=== PATIENT | female | born 1985 | race Caucasian/White ===

== ENCOUNTER 2023-05-02 08:47 | Outpatient (CLI) | payer OTHER, SELFPAY ==
--- OUTSIDE RECORDS SUMMARY | 2023-05-02 08:50 | XMS_ITS | Referral Summary ---
Author Name Unknown Organization [facility] Address [address] [place] [address] Care Team Providers Care Seam Press Operator Name Role Phone Elsewhere, Pcp Primary Care Provider Unavailabl e Source Comments Patient records contain information from all sites at [facility]. For routine questions regarding patient records, call [phone] during business hours, M-F 8:00 AM - 5:00 PM Central Time. Record requests for emergency care only can be directed to [phone] at any time.[facility] Allergies Active Allergy Reactions Criticality Noted Date Comments Cetirizine Hives (Reselect Reaction),Rash 10/29/2012 Hand and feet itch very bad Fexofenadine Hives (Reselect Reaction) 09/28/2011 Hands and feet swelling Medications Medication Sig Dispensed Refills Start Date End Date Status levonorgestreL (MIRENA) 20 mcg/24 hours (5 yrs) 52 mg IUD 1 each by intrauterine route once. Placed 6 weeks ago 0 Active amoxicillin (AMOXIL) 500 mg capsule Take 1 capsule (500 mg total) by mouth every 8 (eight) hours. 30 capsule 0 01/22/2022 Active methylPREDNISolone (MEDROL DOSEPAK) 4 mg tablet Follow package directions. 21 tablet 0 03/06/2022 Active diazePAM (VALIUM) 5 mg tablet Take 1 tablet (5 mg total) by mouth 3 (three) times a day as needed for muscle spasms for up to 3 days. 9 tablet 0 03/06/2022 Active Active Problems No known active problems Immunizations Name Administration Dates Next Due 4vHPV (discontinued) 03/08/2009,05/14/2008 Td (Adult), adsorbed 03/18/2008 Social History Tobacco Use Types Packs/Day Years Used Date Smoking Tobacco: Every Day Smokeless Tobacco: Never Nutrition Answer Date Recorded Nutrition: EVOO Fat Source Unknown 05/20 Nutrition: Servings of Fruits/Vegetables per Day Not on file 05/20/2020 Dental Answer Date Recorded Dental: Regular Dentist Unknown 05/21/19 21 Sex and Gender Information Value Date Recorded Sex Assigned at Not on file Gender Identity Not on file Sexual Orientation Not on file Last Filed Vital Signs Vital Sign Reading Time Taken Comments Blood Pressure 130/96 03/06/2022 7:52 PM BROKER Pulse 100 03/06/2022 7:52 PM BROKER Temperature 36.8 ??C (98.2 ??F) 03/06/2022 7:52 PM CS T Respiratory Rate 16 01/22/2022 8:25 AM BROKER Oxygen Saturation 100% 03/06/2022 7:52 PM BROKER Inhaled Oxygen Concentration - - Weight 77.2 kg (170 lb 3.1 oz) 03/06/2022 7:53 P M BROKER Height 158 cm (5' 2.21) 03/29/2016 12:53 PM BROKER Body Mass Index 30.92 03/29/2016 12:53 PM BROKER Plan of Treatment Not on file Care Teams Seam Press Operator Relationship Specialty Start Date End Date Elsewhere, Pcp PCP - General Internal Medicine 05/22/19
--- OUTSIDE RECORDS SUMMARY | 2023-05-02 08:50 | XMS_ITS | Clinical Summary ---
Author Name Unknown Organization [facility] Address [address] [place] [address] Care Team Providers Care Automobile Body Repair Chief Name Role Phone Elsewhere, Pcp Primary Care Provider Unavailabl e Source Comments Patient records contain information from all sites at [facility]. For routine questions regarding patient records, call [phone] during business hours, M-F 8:00 AM - 5:00 PM Central Time. Record requests for emergency care only can be directed to [phone] at any time.[facility] Allergies Active Allergy Reactions Criticality [...] Comments Blood Pressure 130/96 03/06/2022 7:52 PM MORTGAGE PROCESSING MANAGER Pulse 100 03/06/2022 7:52 PM MORTGAGE PROCESSING MANAGER Temperature 36.8 ??C (98.2 ??F) 03/06/2022 7:52 PM CS T Respiratory Rate 16 01/22/2022 8:25 AM MORTGAGE PROCESSING MANAGER Oxygen Saturation 100% 03/06/2022 7:52 PM MORTGAGE PROCESSING MANAGER Inhaled Oxygen Concentration - - Weight 77.2 kg (170 lb 3.1 oz) 03/06/2022 7:53 P M MORTGAGE PROCESSING MANAGER Height 158 cm (5' 2.21) 03/29/2016 12:53 PM MORTGAGE PROCESSING MANAGER Body Mass Index 30.92 03/29/2016 12:53 PM MORTGAGE PROCESSING MANAGER Plan of Treatment Health Maintenance Due Date Last Done Comments Cervical Cancer Screening 1985 HIV Screening 1985 Hepatitis B Vaccines (1 of 3 - 3-dose series) 1985 Hepatitis C Screening 1985 Lipid (Cholesterol) Screening 1985 Tobacco Cessation counseling 1985 COVID-19 Vaccine (#1) 03/27/1986 Pneumococcal vaccine (0-64 y ears) (1 of 2 - PCV) 09/25/1991 HPV Vaccines (3 - 3-dose series) 05/31/2009 03/08/20 09, 05/14/2008 Influenza Vaccine (#1) 2022 12/31/2018, 2016 Depression Screening (Annual PHQ-2) 03/19/2023 DTaP,Tdap,and Td Vaccines (3 - Td or Tdap) 12/31/2028 12/31/2018, 05/14/2017, 03/18/2008 Care Teams Automobile Body Repair Chief Relationship Specialty Start Date End Date Elsewhere, Pcp PCP - General Internal Medicine 05/22/19
--- OUTSIDE RECORDS SUMMARY | 2023-05-02 08:50 | XMS_ITS | Clinical Summary ---
Author Name Unknown Organization [facility] Address [place], [place] [address] Care Team Providers Care Bank Vault Attendant Name Role Phone Pcp, No Primary Care Provider Unavailabl e Allergies Active Allergy Reactions Criticality Noted Date Comments Fexofenadine Hives 06/05/2013 Hands and feet swelling Cetirizine Rash 06/05/2013 Hand and feet itch very bad Medications No known medications Active Problems Problem Noted Date Diagnosed Date Normal labor 07/19/2017 Post-term , 40-42 weeks of gestation 18 weeks gestation of 02/06/2017 Right lower quadrant abdominal pain 02/06/2017 Leukocytosis 02/06/2017 Elevated AST (SGOT) 02/06/2017 Anemia affecting in second trimester 1 04/08/2016 Psoriasis 03/01/2016 Strain of left rotator cuff capsule 12/24/2014 Sprain and strain of leftshoulder and upper arm 05/11/2014 Neck muscle strain 05/11/2014 Allergic rhinitis 06/05/2013 Immunizations Name Administration Dates Next Due Human Papilloma Virus Vaccine 03/08/2009, 009 Influenza, IIV4 (=>6mos) MDV 02/05/2017 Td (Age >=7 Years) 03/18/2008 Tdap 05/14/2017 Social History Tobacco Use Types Packs/Day Years Used Date Smoking Tobacco: Every Day Cigarettes Smokeless Tobacco: Never Tobacco Cessation:Ready to Q uit: No; Counseling Given: Yes Alcohol Use Standard Drinks/Week Comments Yes 0 (1 standard drink = 0.6 oz pur e alcohol) Occasionally Sex and Gender Information Value Date Recorded Sex Assigned at Not on file Gender Identity Not on file Sexual Orientation Not on file Obstetrics History Para Term AB IAB SAB Ectopic Multiple Livin g Live Births 1 1 1 0 0 0 0 0 0 1 1 Date Outcome GA Total Labor Labor/2nd/3rd Weight Sex Delivery Anes PTL Phyllis A1 A5 Name Cl in 07/19 Term 41w 3d 3.11 kg (6 lb 13.7 oz) F Vag N Laquita ng 4 4 ALCALA ,BG RICARDA APRIL Klebs Complications:None,1 minute score 4,10 minute score 5 Delivery Location:[facility]) Comments:Meconium afte r rupture Last Filed Vital Signs Vital Sign Reading Time Taken Comments Blood Pressure 112/64 11/14/2017 7:46 AM CDT Pulse 72 11/14/2017 7:46 AM CDT Temperature 36.9 ??C (98.5 ??F) 07/19/2017 3:30 PM CD T Respiratory Rate 16 07/19/2017 12:55 PM CDT Oxygen Saturation 98% 02/06/2017 4:10 PM AIR BRAKE MECHANIC Inhaled Oxygen Concentration - - Weight 67.6 kg (149 lb 1.6 oz) 11/14/2017 7:46 A M CDT Height 160 cm (5' 3) 11/14/2017 7:46 AM CDT Body Mass Index 26.41 11/14/2017 7:46 AM CDT Plan of Treatment Health Maintenance Due Date Last Done Comments COVID-19 vaccine series (#1) 03/27/1986 Hepatitis C screening for age 18-79 09/25/2003 Depression screening for age 12+ 04/23/2018 04/23/2017, 04/23/2017, 12/09/2015 BMI (ht and wt on same day) for age 18+ 11/14/2018 11/14/2017, 04/23/2017, 11/01/2016, Additional history exists Pap test for age 21-65 12/12/2019 12/11/2016, 2013 Influenza for age 9-49 11/17/2022 02/05/2017 Tetanus booster 05/14/2027 05/14/2017, 03/18/2008 HIV for age 15-65 Completed 11/01/2016 Tdap Completed 05/14/2017 Pneumococcal series for age 6-64 Aged Out No longer eligible based on patient's age to complete this topic Advance Directives Latest Code Status on File Code Status Date Activated Date Inactivated Comments Full Code 07/19/2017 1:08 PM 07/20/2017 12:33 AM Question Answer Comments Code Status Discussion: Not Discussed Code Status History Code Status Date Activated Date Inactivated Comments Full Code 07/18/2017 9:12 PM 07/18/2017 9:12 PM Question Answer Comments Code Status Discussion: Not Discussed Full Code 07/16/2017 12:02 PM 07/16/2017 10:09 PM Question Answer Comments Code Status Discussion: Not Discussed Full Code 05/16/2017 3:48 PM 05/16/2017 8:17 PM Full Code 02/06/2017 3:35 AM 02/06/2017 6:45 PM Care Teams Bank Vault Attendant Relationship Specialty Start Date End Date Pcp, No . PCP - General 02/28/18
--- OUTSIDE RECORDS SUMMARY | 2023-05-02 08:50 | XMS_ITS ---
Author Name Unknown Organization [facility] Address [address] [place] [address] Care Team Providers Care Cio Name Role Phone Unavailable Unavailable Unavailable Surgery Details Not on file Complications Check Surgery Details section. Procedure Estimated Blood Loss Check Surgery Details section. Procedure Findings Check Surgery Details section. Procedure Specimens Taken Check Surgery Details section.
== END 2023-05-02 08:48 | disposition home or self-care (01) ==
PROVIDERS: PCP Family Medicine; Visit Provider Family Medicine
DX: M25.50 Pain in unspecified joint (principal)
CPT/HCPCS: 80053; 86039; 86140; 86431; 86618; 86812

== ENCOUNTER 2023-10-16 09:30 | Outpatient (CLI) | payer OTHER, SELFPAY ==
--- OUTSIDE RECORDS SUMMARY | 2023-10-16 09:33 | XMS_ITS ---
Author Organization [facility] Address [address] [place] [address] Care Team Providers Care Rail Car Repair Carman Name Role Phone Unavailable Unavailable Unavailable Surgery Details Not on file Complications Check Surgery Details section. Procedure Estimated Blood Loss Check Surgery Details section. Procedure Findings Check Surgery Details section. Procedure Specimens Taken Check Surgery Details section.
--- OUTSIDE RECORDS SUMMARY | 2023-10-16 09:33 | XMS_ITS | Clinical Summary ---
Author Organization [facility] Address [place], [place] [address] Care Team Providers Care Rewards Consultant Name Role Phone Pcp, No Primary Care [...] Outcome GA Total Labor Labor/2nd/3rd Weight Sex Type Anes PTL Phyllis A1 A5 Name Clin 2017 Term 41w 3d 3.11 kg (6 lb 13.7 oz) F Vag N Livin g 4 4 ALCALA, BG JENNIF ER Klebs Complications:None,1 minute score 4,10 minute score 5 Delivery Location:[facility]) Comments:Meconium afte r rupture Last Filed Vital Signs Vital Sign Reading Time Taken Comments Blood Pressure 112/64 11/14/2017 7:46 AM CDT Pulse 72 11/14/2017 7:46 AM CDT Temperature 36.9 ??C (98.5 ??F) 07/19/2017 3:30 PM CD T Respiratory Rate 16 07/19/2017 12:55 PM CDT Oxygen Saturation 98% 02/06/2017 4:10 PM CONTACT LENS INSPECTOR Inhaled Oxygen Concentration - - Weight 67.6 kg (149 lb 1.6 oz) 11/14/2017 7:46 A M CDT Height 160 cm (5' 3) 11/14/2017 7:46 AM CDT Body Mass Index 26.41 11/14/2017 7:46 AM CDT Plan of Treatment Health Maintenance Due Date Last Done Comments Hepatitis C screening for age 18-79 09/25/2003 Depression screening for age 12+ 04/23/2018 04/23/2017, 04/23/2017, 12/09/2015 BMI (ht and wt on same day) for age 18+ 11/14/2018 11/14/2017, 04/23/2017, 11/01/2016, Additional history exists Pap test for age 21-65 12/12/2019 12/11/2016, 2013 COVID-19 vaccine series ( season) 2022 Influenza for age 9-49 11/18/2023 02/05/2017 Tetanus booster 05/14/2027 05/14/2017, 03/18/2008 HIV for age 15-65 Completed 11/01/2016 Tdap Completed 05/14/2017 Pneumococcal series for age 6-64 Aged Out No longer eligible based on patient's age to complete this topic Procedures Procedure Name Priority Date/Time Associated Diagnosis Comments PELLETIZER TENDER THIN PREP PAP SCREEN IMAGED Routine 12/11/2016 9:33 AM CDT Screening for cervical cancer ANTI HIV 1/2 Routine 11/01/2016 2:40 PM CDT , unspecified gestational age from Last 3 Months or Most Recently Relevant to Health Maintenance Results * PELLETIZER TENDER THIN PREP PAP SCREEN IMAGED (12/11/2016 9:33 AM CDT) Case Report Gynecologic Cytology Report ? Case: [id number] ? Authorizing Provider: ??Tyrese Schwartz MD Collected: ? 12/11/2016 0933 ? Ordering Location: ? [facility] ? Received: ?12/11/2016 1006 [facility] ? First Screen: ?Katiuska Hardwick ? Specimen: ?PELLETIZER TENDER ThinPrep Vial Screening, Cervical ? 12/18/2016 2:06 PM CDT [facility] INTERPRETATION/ RESULT NEGATIVE FOR INTRAEPITHELIAL LESION OR MALIGNANCY (NIL) (none) 12/18/2016 2:06 PM CDT [facility] IMEN ADEQUACY Satisfactory for evaluation No endocervical component seen 12/18/2016 2:06 PM CDT [facility] HPV REQUEST HPV if ASCUS 12/18/2016 2:06 PM CDT [facility] Date of LMP 09/30/2016 12/18/2016 2:06 PM CDT [facility] Last Pap Date 05/201312/18/2016 2:[address] [facility] Last Pap Result NIL 7 2:06 PM CDT [facility] Abnormal Pap or [place] Bx in last 5 years No 12/18/2016 2:06 PM CDT [facility] Menstrual Status Regular Periods 12/18/2016 2:[address] [facility] [place] Bx Done Today No 12/18/2016 2:06 PM CDT [facility] Additional Information None given 12/18/2016 2:06 PM CDT [facility] Automated Review Successful 12/18/2016 2:06 PM CDT [facility] Comment:Specimen processed s uccessfully by automated inspector penetrant device, ThinPrep Imaging System, [employer] Note The pap test is a screening technique, not a diagnostic procedure. ??It is used primarily to screen for squamous cancers and precursor lesions. ??Published studies have shown that it is subject to both false negative and false positive results. ??The pap test should not be used as the sole means to diagnose or exclude pre-malignant and malignant lesions. Interpreted at [facility] ([facility], [facility], [facility], , [facility], [facility], [facility]) 12/18/2016 2:06 PM CDT [facility] Other (Cervical) 12/11/2016 9:33 AM CDT 12/11/2016 10:06 AM CDT Tyrese Schwartz MD PATHOLOGY/CYTOL OGY [facility] [address] [place] [address], * ANTI HIV 1/2 (11/01/2016 2:40 PM CDT) HIV-1/HIV-2 ANTIBODY Non-Reacti ve Non-Reacti ve 11/01/2016 8:01 PM CDT [facility] Blood BLOOD SPECIMEN / Unknown Venipuncture / Unknown 11/01/2016 2:40 PM CDT 11/01/2016 2:52 PM CDT Narrative [facility] - 11/01/2016 8:01 PM CDT HIV-1 p24 and HIV-1/HIV-2 Ab not detected Tyrese Schwartz MD SEND OUTS Performing Organization Address City/[facility]/ZIP Co de Phone Number [facility] [address] [place] [address], from Last 3 Months or Most Recently Relevant to Health Maintenance Advance Directives * Full Code (Latest Code Status on File) Date Activated Date Inactivated Comments 07/19/2017 1:08 PM 07/20/2017 12:33 AM Question Answer Comments Code Status Discussion: Not Discussed * Full Code Date Activated Date Inactivated Comments 07/18/2017 9:12 PM 07/18/2017 9:12 PM Question Answer Comments Code Status Discussion: Not Discussed * Full Code Date Activated Date Inactivated Comments 07/16/2017 12:02 PM 07/16/2017 10:09 PM Question Answer Comments Code Status Discussion: Not Discussed * Full Code Date Activated Date Inactivated Comments 05/16/2017 3:48 PM 05/16/2017 8:17 PM * Full Code Date Activated Date Inactivated Comments 02/06/2017 3:35 AM 02/06/2017 6:45 PM Care Teams Rewards Consultant Relationship Specialty Start Date End Date Pcp, No . PCP - General 02/28/18
--- OUTSIDE RECORDS SUMMARY | 2023-10-16 09:33 | XMS_ITS | Referral Summary ---
Author Organization [facility] Address [address] [place] [address] Care Team Providers Care Marine Cargo Surveyor Name Role Phone Elsewhere, Pcp Primary Care Provider Unavailabl e Source Comments Patient records contain information from all sites at [facility]. For routine questions regarding patient records, call [phone] during business hours, M-F 8:00 AM - 5:00 PM Central Time. Record requests for emergency care only can be directed to [phone] at any time.[facility] Allergies Active Allergy Reactions Criticality Noted Date Comments Cetirizine Hives (Reselect Reaction),Rash 10/29/2012 Hand and feet itch very bad Fexofenadine Hives (Reselect Reaction) 09/28/2011 Hands and feet swelling Medications Medication Sig Dispensed Refills Start Date End Date Status levonorgestreL (MIRENA) 20 mcg/24 hours (5 yrs) 52 mg IUD 1 each by intrauterine route once. Placed 6 weeks ago Active amoxicillin (AMOXIL) 500 mg capsule Take 1 capsule (500 mg total) by mouth every 8 (eight) hours. 30 capsule 01/22/2022 Active methylPREDNISolone (MEDROL DOSEPAK) 4 mg tablet Follow package directions. 21 tablet 03/06/2022 Active diazePAM (VALIUM) 5 mg tablet Take 1 tablet (5 mg total) by mouth 3 (three) times a day as needed for muscle spasms for up to 3 days. 9 tablet 03/06/2022 Active Active Problems No known active [...] Comments Blood Pressure 130/96 03/06/2022 7:52 PM COSTUME SHOP COORDINATOR Pulse 100 03/06/2022 7:52 PM COSTUME SHOP COORDINATOR Temperature 36.8 ??C (98.2 ??F) 03/06/2022 7:52 PM CS T Respiratory Rate 16 01/22/2022 8:25 AM COSTUME SHOP COORDINATOR Oxygen Saturation 100% 03/06/2022 7:52 PM COSTUME SHOP COORDINATOR Inhaled Oxygen Concentration - - Weight 77.2 kg (170 lb 3.1 oz) 03/06/2022 7:53 P M COSTUME SHOP COORDINATOR Height 158 cm (5' 2.21) 03/29/2016 12:53 PM COSTUME SHOP COORDINATOR Body Mass Index 30.92 03/29/2016 12:53 PM COSTUME SHOP COORDINATOR Plan of Treatment Not on file Care Teams Marine Cargo Surveyor Relationship Specialty Start Date End Date Elsewhere, Pcp PCP - General Internal Medicine 05/22/19
--- OUTSIDE RECORDS SUMMARY | 2023-10-16 09:33 | XMS_ITS | Clinical Summary ---
Author Organization [facility] Address [address] [place] [address] Care Team Providers Care Pattern Perforating Machine Operator Name Role Phone Elsewhere, Pcp Primary Care Provider Unavailabl e Source Comments Patient records contain information from all sites at [facility]. For routine questions regarding patient records, call [phone] during business hours, M-F 8:00 AM - 5:00 PM Central Time. Record requests for emergency care only can be directed to [phone] at any time.[facility] Allergies Active Allergy Reactions Criticality Noted Date [...] Comments Blood Pressure 130/96 03/06/2022 7:52 PM FINISH GRINDER Pulse 100 03/06/2022 7:52 PM FINISH GRINDER Temperature 36.8 ??C (98.2 ??F) 03/06/2022 7:52 PM CS T Respiratory Rate 16 01/22/2022 8:25 AM FINISH GRINDER Oxygen Saturation 100% 03/06/2022 7:52 PM FINISH GRINDER Inhaled Oxygen Concentration - - Weight 77.2 kg (170 lb 3.1 oz) 03/06/2022 7:53 P M FINISH GRINDER Height 158 cm (5' 2.21) 03/29/2016 12:53 PM FINISH GRINDER Body Mass Index 30.92 03/29/2016 12:53 PM FINISH GRINDER Plan of Treatment Health Maintenance Due Date Last Done Comments Cervical Cancer Screening 1985 HIV Screening 1985 Hepatitis C Screening 1985 Lipid (Cholesterol) Screening 1985 Tobacco Cessation counseling 1985 Pneumococcal vaccine (0-64 y ears) (1 of 2 - PCV) 09/25/1991 Hepatitis B Vaccines (1 of 3 - 19+ 3-dose series) 2004 HPV Vaccines (3 - 3-dose series) 05/31/2009 03/08/20 09, 05/14/2008 COVID-19 Vaccine ( - 2022-24 season) 2022 Depression Screening (Annual PHQ-2) 03/19/2023 Influenza Vaccine (#1) 2023 12/31/2018, 2016 DTaP,Tdap,and Td Vaccines (3 - Td or Tdap) 12/31/2028 12/31/2018, 05/14/2017, 03/18/2008 Care Teams Pattern Perforating Machine Operator Relationship Specialty Start Date End Date Elsewhere, Pcp PCP - General Internal Medicine 05/22/19
== END 2023-10-16 09:31 | disposition home or self-care (01) ==
PROVIDERS: PCP Family Medicine; Visit Provider Obstetrics & Gynecology
DX: Z01.419 Encounter for gynecological examination (general) (routine) without abnormal findings (principal); Z13.6 Encounter for screening for cardiovascular disorders; Z13.1 Encounter for screening for diabetes mellitus
CPT/HCPCS: 80061; 82947

== ENCOUNTER 2023-10-29 08:31 | Outpatient (CLI) | payer OTHER, SELFPAY ==
--- OUTSIDE RECORDS SUMMARY | 2023-10-29 08:34 | XMS_ITS | Clinical Summary ---
Author Organization [facility] Address [address] [place] [address] Care Team Providers Care Caddy Name Role Phone Elsewhere, Pcp Primary Care Provider Unavailabl e Source Comments Patient records contain information from all sites at [facility]. For routine questions regarding patient records, call [phone] during business hours, M-F 8:00 AM - 5:00 PM Central Time. Record requests for emergency care only can be directed to [phone] at any time.[facility] Allergies Active Allergy Reactions Criticality Noted Date [...] Comments Blood Pressure 130/96 03/06/2022 7:52 PM TREE MARKER Pulse 100 03/06/2022 7:52 PM TREE MARKER Temperature 36.8 ??C (98.2 ??F) 03/06/2022 7:52 PM CS T Respiratory Rate 16 01/22/2022 8:25 AM TREE MARKER Oxygen Saturation 100% 03/06/2022 7:52 PM TREE MARKER Inhaled Oxygen Concentration - - Weight 77.2 kg (170 lb 3.1 oz) 03/06/2022 7:53 P M TREE MARKER Height 158 cm (5' 2.21) 03/29/2016 12:53 PM TREE MARKER Body Mass Index 30.92 03/29/2016 12:53 PM TREE MARKER Plan of Treatment Health Maintenance Due Date [...] Tdap) 12/31/2028 12/31/2018, 05/14/2017, 03/18/2008 Care Teams Caddy Relationship Specialty Start Date End Date Elsewhere, Pcp PCP - General Internal Medicine 05/22/19
--- OUTSIDE RECORDS SUMMARY | 2023-10-29 08:34 | XMS_ITS | Referral Summary ---
Author Organization [facility] Address [address] [place] [address] Care Team Providers Care Uke Driver Name Role Phone Elsewhere, Pcp Primary Care Provider Unavailabl e Source Comments Patient records contain information from all sites at [facility]. For routine questions regarding patient records, call [phone] during business hours, M-F 8:00 AM - 5:00 PM Central Time. Record requests for emergency care only can be directed to [phone] at any time.[facility] Allergies Active Allergy Reactions Criticality Noted [...] Comments Blood Pressure 130/96 03/06/2022 7:52 PM IRRIGATOR HEAD Pulse 100 03/06/2022 7:52 PM IRRIGATOR HEAD Temperature 36.8 ??C (98.2 ??F) 03/06/2022 7:52 PM CS T Respiratory Rate 16 01/22/2022 8:25 AM IRRIGATOR HEAD Oxygen Saturation 100% 03/06/2022 7:52 PM IRRIGATOR HEAD Inhaled Oxygen Concentration - - Weight 77.2 kg (170 lb 3.1 oz) 03/06/2022 7:53 P M IRRIGATOR HEAD Height 158 cm (5' 2.21) 03/29/2016 12:53 PM IRRIGATOR HEAD Body Mass Index 30.92 03/29/2016 12:53 PM IRRIGATOR HEAD Plan of Treatment Not on file Care Teams Uke Driver Relationship Specialty Start Date End Date Elsewhere, Pcp PCP - General Internal Medicine 05/22/19
--- OUTSIDE RECORDS SUMMARY | 2023-10-29 08:34 | XMS_ITS ---
Author Organization [facility] Address [address] [place] [address] Care Team Providers Care Factory Machine Computer Operator Name Role Phone Unavailable Unavailable Unavailable Surgery Details Not on file Complications Check Surgery Details section. Procedure Estimated Blood Loss Check Surgery Details section. Procedure Findings Check Surgery Details section. Procedure Specimens Taken Check Surgery Details section.
--- OUTSIDE RECORDS SUMMARY | 2023-10-29 08:35 | XMS_ITS | Clinical Summary ---
Author Organization [facility] [employer] [facility] Address [place], [place] [address] Care Team Providers Care Commercial Lending Relationship Manager Name Role Phone Pcp, No Primary Care [...] Neck muscle strain 05/11/2014 Allergic rhinitis 06/05/2013 Encounters Date Type Department Care Team Description 10/16/2023 Lab Requisition [facility] [phone] Yumiko Austin MD from Last 3 Months Immunizations Name Administration Dates Next Due Human [...] N Livin g 4 4 ALCALA, BG FADUMO ER Klebs Complications:None,1 minute score 4,10 minute score 5 Delivery Location:[facility] ([facility] IP) Comments:Meconium afte r rupture Last Filed Vital Signs Vital Sign Reading Time Taken Comments Blood Pressure 112/64 11/14/2017 7:46 AM CDT Pulse 72 11/14/2017 7:46 AM CDT Temperature 36.9 ??C (98.5 ??F) 07/19/2017 3:30 PM CD T Respiratory Rate 16 07/19/2017 12:55 PM CDT Oxygen Saturation 98% 02/06/2017 4:10 PM CASE MANAGEMENT MANAGER Inhaled Oxygen Concentration - - Weight 67.6 [...] 11/14/2018 11/14/2017, 04/23/2017, 11/01/2016, Additional history exists COVID-19 vaccine series ( season) 2022 Influenza for age 9-49 11/18/2023 02/05/2017 Pap test for age 21-65 10/15/2026 4, 10/16/2023, 12/11/2016, Additional history exists Tetanus booster 05/14/2027 05/14/2017, 03/18/2008 HIV for age 15-65 Completed 11/01/2016 Tdap Completed 05/14/2017 Pneumococcal series for age 6-64 Aged Out No longer eligible based on patient's age to complete this topic Procedures Procedure Name Priority Date/Time Associated Diagnosis Comments LAB TRACKING EVENT Routine 10/16/2023 9: 15 AM CDT COSMETICIAN APPRENTICE THIN PREP PAP SCREEN IMAGED Routine 10/16/2023 9:15 AM CDT HPV THIN PREP Routine 10/16/2023 9:15 AM CDT ANTI HIV 1/2 Routine 11/01/2016 2:40 PM CDT , unspecified gestational age from Last 3 Months or Most Recently Relevant to Health Maintenance Results * LAB TRACKING EVENT (10/16/2023 9:15 AM CDT) Other (Other) Client Collect / Unknown 10/16/2023 9:15 AM CDT 10/16/2023 4:08 PM CDT Yumiko Austin MD LAB BILL O NLY [facility] [address] [place] [id number], * COSMETICIAN APPRENTICE THIN PREP PAP SCREEN IMAGED (10/16/2023 9:15 AM CDT) Case Report Gynecologic Cytology Report ? Case: [id number] ? Authorizing Provider: ??Yumiko Austin ??Collected: ? 10/16/2023 0915 ? M, MD ? Ordering Location: ? [facility] ?Received: ?10/18/2023 0959 ? First Screen: ?Jay, Sukumar ? Rescreen: ?Devi Escobar L ? Pathologist: ? Darnell Chavez MD ? Specimen: ?COSMETICIAN APPRENTICE ThinPrep Vial Screening, Cervical ? 10/25/2023 8:39 AM CDT [facility] INTERPRETATION/ RESULT NEGATIVE FOR INTRAEPITHELIAL LESION OR MALIGNANCY (NIL) (none) 10/25/2023 8:39 AM [facility] R NON-NEOPLASTIC FINDING(S) Reactive cellular changes associated with inflammation/repa ir 10/25/2023 8:39 AM CDT [facility] SPECIMEN ADEQUACY Satisfactory for evaluation Endocervical component present 10/25/2023 8:39 AM CDT [facility] HPV REQUEST HPV and PAP 10/25/2023 8:39 AM CDT [facility] Date of LMP 10/10/2023 10/25/2023 8:39 AM CDT [facility] Last Pap Date 12/11/2016 10/25/2023 8:39 AM CDT [facility] Last Pap Result NIL 8:39 AM CDT [facility] Abnormal Pap or Bunola Bx in last 5 years No 10/25/2023 8:39 AM CDT [facility] Bunola Bx Done Today No 10/25/2023 8:39 AM CDT [facility] Additional Information 10/25/2023 8:39 AM CDT [facility] Comment: Interpreted at [facility], Central Laboratory - [address], [place] [address] Automated Review Successful 10/25/2023 8:39 AM T [facility] Comment:Specimen processed s uccessfully by automated limo driver device, ThinPrep Imaging System, [employer] ANCILLARY TESTING COSMETICIAN APPRENTICE HPV Ordered, Please see separate report 10/25/2023 8:39 AM CDT [facility] Note The pap test is a screening technique, not a diagnostic procedure. It is used primarily to screen for squamous cancers and precursor lesions. Published studies have shown that it is subject to both false negative and false positive results. The pap test should not be used as the sole means to diagnose or exclude pre-malignant and malignant lesions. 10/25/2023 8:39 AM CDT [facility] Other (Cervical) 10/16/2023 9:15 AM CDT 10/18/2023 9:59 AM CDT Yumiko Austin MD PATHOLOGY/ CYTOLOGY Performing Organization Address City/[facility]/ZIP Co de Phone Number [facility] [address] * HPV HIGH RISK (10/16/2023 9:15 AM CDT) TYPE 16 Negative Negative 10/19/2023 2:34 PM CDT [facility] TYPE 18 Negative Negative 10/19/2023 2:34 PM CDT [facility] OTHER HIGH RISK TYPES Negative Negative 10/19/2023 2:34 PM CDT [facility] Other (Cervical) 10/16/2023 9:15 AM CDT 10/18/2023 9:59 AM CDT Narrative [facility] - 10/19/2023 2:34 PM CDT HPV types 16, 18, 31, 33, 35, 39, 45, 51, 52, 56, 58, 59, 66 and 68 DNA were undetectable or below the pre-set threshold. Methodology: Nicolasa Carmen 4800 HPV Test Yumiko Austin MD MICROBIOLO GY Performing Organization Address [facility] Co de Phone Number [facility] [address] [place] [address], * ANTI HIV 1/2 (11/01/2016 2:40 PM CDT) HIV-1/HIV-2 ANTIBODY Non-Reacti ve Non-Reacti ve 11/01/2016 8:01 PM CDT [facility] Blood BLOOD SPECIMEN / Unknown Venipuncture / Unknown 11/01/2016 2:40 PM CDT 11/01/2016 2:52 PM CDT Narrative [facility] - 11/01/2016 8:01 PM CDT HIV-1 p24 and HIV-1/HIV-2 Ab not detected Tyrese Schwartz MD SEND OUTS [facility] [address] [place] [address], [place] from Last 3 Months or Most Recently [...] 3:35 AM 02/06/2017 6:45 PM Care Teams Commercial Lending Relationship Manager Relationship Specialty Start Date End Date Pcp, No . PCP - General 02/28/18
--- NOTE | 2023-10-29 08:45 | CRLHL7_ITS ---
For Patients: As a result of the Cures Act, medical imaging exams and procedure reports are released immediately into your electronic medical record. You may view this report before your referring provider. If you have questions, please contact your health care provider. DIGITAL DIAGNOSTIC BILATERAL MAMMOGRAM USING TOMOSYNTHESIS AND COMPUTER-AIDED DETECTION LEFT BREAST ULTRASOUND CLINICAL HISTORY: LEFT breast lump. COMPARISON: None. TECHNIQUE: Digital BILATERAL mammogram in four projections with computer-aided detection. Tomosynthesis was used in this interpretation. Real-time ultrasound imaging of LEFT breast with imaging documentation. BREAST COMPOSITION: The breasts are heterogeneously dense, which may obscure small masses. FINDINGS: 3D CC/MLO BILATERAL mammogram images submitted. No suspicious masses or architectural distortion. No adenopathy or suspicious calcifications. Targeted LEFT breast ultrasound performed in the area of concern at 12 o`clock 5 cm from the nipple. No fibrocystic change or mass. IMPRESSION: No suspicious findings. No evidence of malignancy. Normal dense fibroglandular tissue. RECOMMENDATIONS: Routine screening mammography starting at age 40. BI-RADS Category 2: Benign. Results and recommendations discussed with the patient. A lay language report of this examination will be provided to the patient. Dictated by Niko Quintero MD @ 10/29/2023 9:18:15 AM /sp/erin SP/Dictated by: Niko Quintero MD @ 10/29/2023 9:32:00 AM (Electronically Signed)
--- NOTE | 2023-10-29 09:15 | CRLHL7_ITS ---
For Patients: As a result of the Century Cures Act, medical imaging exams and procedure reports are released immediately into your electronic medical record. You may view this report before your referring provider. If you have questions, please contact your health care provider. PLEASE SEE BILATERAL BREAST DIAGNOSTIC MAMMOGRAM OF SAME DAY. CRL:patrick/erin SP/Dictated by: Niko Quintero MD @ 10/29/2023 9:18:00 AM (Electronically Signed)
== END 2023-10-29 08:32 | disposition home or self-care (01) ==
LOC: MAMMO 08:32
PROVIDERS: PCP Family Medicine; Visit Provider Obstetrics & Gynecology
DX: N63.20 Unspecified lump in the left breast, unspecified quadrant (principal); N64.4 Mastodynia
CPT/HCPCS: 76642; 77066; G0279